=== PATIENT | male | born 1950 | race Caucasian/White ===

== ENCOUNTER → 2019-11-03 15:31 | Emergency (ER) | payer MEDICARE, SELFPAY ==
[2019-11-03 15:33] VITALS: BP 111/69; PULSE 91; RESP 16; TEMP 36.6; O2SAT 97
[2019-11-03] MEDS: predniSONE 20 MG TABLET 60 MG PO (16:43)
[2019-11-03] MEDS: FAMOTIDINE 20 MG TABLET PO (16:43)
--- NOTE | 2019-11-03 16:43 | ED.GENADULT ---
HPI - General Adult General Chief complaint: Unspecified <Ramy Estrada PA-C - Last Filed: 11/03/19 16:47> Stated complaint: bee sting issue <MERCEDES Joseph Last Filed: 11/03/19 16:47> Time Seen by Provider: 11/03/19 16:09 <Ramy Estrada PA-C - Last Filed: 11/03/19 16:47> Source: patient and family <MERCEDES Joseph Last Filed: 11/03/19 16:47> Mode of arrival: ambulatory <Ramy Estrada PA-C - Last Filed: 11/03/19 16:47> Limitations: no limitations <Ramy Estrada PA-C - Last Filed: 11/03/19 16:47> History of Present Illness HPI narrative: Patient is a 69-year-old male who presents with multiple stings to the lower extremities that occurred today while mowing the lawn patient was stung by yellow jackets took Benadryl multiple types with no improvement presents noting he began to feel weak but is feeling much better at this time patient denies recent illness or other complaints and presents per private vehicle in no distress <Ramy Estrada PA-C - Last Filed: 11/03/19 16:47> Related Data Allergies/adverse reactions: Allergies Allergy/AdvReac Type Severity Reaction Status Date / Time bee venom protein (honey bee) Allergy Swelling Verified 11/03/19 16:44 [bees] <Ramy Estrada PA-C - Last Filed: 11/03/19 16:47> Review of Systems Review of Systems: All systems reviewed & are unremarkable except as noted in HPI and below <Ramy Estrada PA-C - Last Filed: 11/03/19 16:47> PMFSH Social History Social History: Social History (Updated 11/03/19 @ 16:44 by Ramy Estrada PA-C) Smoking status: Current every day smoker Gender identity (if verbalized by the patient): Male <Ramy Estrada PA-C - Last Filed: 11/03/19 16:47> Exam Narrative: Exam Narrative: GENERAL: Well-appearing, well-nourished, and in no acute distress. HEAD: Normocephalic, atraumatic. EYES: PERRLA and EOMI. ENT: Nares clear, no rhinorrhea or epistaxis. Mucous membranes moist. No angioedema in the oropharynx NECK: Supple. No adenopathy or masses. No stridor CHEST: Clear to auscultation. No respiratory distress. No wheezes rales or rhonchi HEART: Regular rate and rhythm. No murmur heard. Normal peripheral pulses. EXTREMITIES: Normal range of motion. No edema. SKIN: Warm, dry, patient with scattered bee stings to the lower extremities NEURO: No focal deficits. Alert and oriented x3. PSYCH: Normal mood and affect. <Ramy Estrada PA-C - Last Filed: 11/03/19 16:47> Course Course Emergency Course: Patient in the room in no distress aware of case findings treatment plan and diagnosis agreeing to follow-up as directed or to return if symptoms worsen or concerns <MERCEDES Joseph Last Filed: 11/03/19 16:47> Vital Signs Vital signs: Vital Signs Temperature 97.9 F 11/03/19 15:33 Pulse Rate 91 11/03/19 15:33 Respiratory Rate 16 11/03/19 15:33 Blood Pressure 111/69 11/03/19 15:33 Pulse Oximetry 97 11/03/19 15:33 Temperature 97.9 F 11/03/19 15:33 Pulse Rate 91 11/03/19 15:33 Respiratory Rate 16 11/03/19 15:33 Blood Pressure 111/69 11/03/19 15:33 Pulse Oximetry 97 11/03/19 15:33 <MERCEDES Joseph Last Filed: 11/03/19 16:47> Vital Signs Temperature 97.9 F 11/03/19 15:33 Pulse Rate 91 11/03/19 15:33 Respiratory Rate 16 11/03/19 15:33 Blood Pressure 111/69 11/03/19 15:33 Pulse Oximetry 97 11/03/19 15:33 Temperature 97.9 F 11/03/19 15:33 Pulse Rate 91 11/03/19 15:33 Respiratory Rate 16 11/03/19 15:33 Blood Pressure 111/69 11/03/19 15:33 Pulse Oximetry 97 11/03/19 15:33 <Sobia Trent MD - Last Filed: 11/03/19 19:02> Medical Decision Making MDM Narrative Medical decision making narrative: Patient with bee stings and allergic reaction no distress hemodynamically stable felt appropriate for discharge home given medications in the
== END | disposition home or self-care (01) ==
PROVIDERS: Emergency Provider General Practice
DX: T63.461A Toxic effect of venom of wasps, accidental (unintentional), initial encounter (principal)
CPT/HCPCS: 99283; A9270; J7512

== ENCOUNTER 2021-09-05 10:06 | Emergency (ER) | payer MEDICARE, SELFPAY ==
[2021-09-05 10:38] VITALS: BP 135/83; PULSE 84; RESP 18; TEMP 36.6; O2SAT 98
--- NOTE | 2021-09-05 11:10 | ED.GENADULT ---
HPI - General Adult General Chief complaint: Skin/Abscess/Foreign Body Stated complaint: Lt eye swollen History of Present Illness HPI narrative: Patient is a 71-year-old male who presents to the [facility] via pov for an evaluation of a skin problem of left face that began 5 days ago. [place] something hit him in the face causing a subtle. sting. He reports swelling, drainage from left eye, and tenderness. Related Data Allergies Allergy/AdvReac Type Severity Reaction Status Date / Time bee venom protein (honey bee) Allergy Swelling Verified 09/05/21 10:56 [bees] Review of Systems Review of Systems: Pertinent negatives fever, chills, sweats, malaise, poor p.o. intake, change in appetite, vision problems, headache, LOC, dizziness, streaking, drainage, numbness, tingling, loss of sensation, foreign body sensation, deformity, sob, chest pain, and heart palpitations/murmurs. [facility] Social History Social History Smoking status: Current every day smoker Gender identity (if verbalized by the patient): Male Exam Narrative: GENERAL: Well-appearing, well-nourished, and in no acute distress. HEAD: Normocephalic, atraumatic. EYES: PERRLA and EOMI. Periorbital cellulitis noted to left face. Watery drainage noted to left eye. Yellow crusts noted to left face. Scabbing that is 0.5 cm in size noted to left cheek. ENT: Nares clear, no rhinorrhea or epistaxis. Mucous membranes moist and pink. Uvula is midline without erythema and swelling. No evidence of obstruction, petechial rash, cobblestoning, lesions, ulcers, erythema, swelling, exudates, peritonsillar abscess, tenting, or drooling. Breath odor and voice normal. NECK: Supple. No Lymphadenopathy or nuchal rigidity appreciated. CHEST: Bilateral lung hicks are clear to auscultation. No respiratory distress. No evidence of cough or pleuritic cp upon examination. HEART: Regular rate and rhythm. No murmur, gallop, or rub heard. EXTREMITIES: Normal range of motion. No edema. SKIN: Warm, dry. No evidence of abscess, streaking, induration, abrasions/lacerations, petechiae, hematoma, contusion, drainage, or bleeding. NEURO: No focal deficits. Alert and oriented x3. SPECIAL OBSERVATIONS: Smiling. Laughing. No evidence of discomfort. Course Course Level of Care: Express Care Visit Vital Signs Vital signs: Vital Signs Temperature 97.9 F 09/05/21 10:38 Pulse Rate 84 09/05/21 10:38 Respiratory Rate 18 09/05/21 10:38 Blood Pressure 135/83 09/05/21 10:38 Pulse Oximetry 98 09/05/21 10:38 Oxygen Delivery Room Air 09/05/21 10:38 Temperature 97.9 F 09/05/21 10:38 Pulse Rate 84 09/05/21 10:38 Respiratory Rate 18 09/05/21 10:38 Blood Pressure 135/83 09/05/21 10:38 Pulse Oximetry 98 09/05/21 10:38 Oxygen Delivery Room Air 09/05/21 10:38 Reviewed. Medical Decision Making Differential Diagnosis Differential Diagnosis: Contact/allergic dermatitis, atopic dermatitis, psoriasis, cellulitis, tinea infection, parasite infection, shingles Vital Signs Vital Signs: Vital Signs Temperature 97.9 F 09/05/21 10:38 Pulse Rate 84 09/05/21 10:38 Respiratory Rate 18 09/05/21 10:38 Blood Pressure 135/83 09/05/21 10:38 Pulse Oximetry 98 09/05/21 10:38 Oxygen Delivery Room Air 09/05/21 10:38 Temperature 97.9 F 09/05/21 10:38 Pulse Rate 84 09/05/21 10:38 Respiratory Rate 18 09/05/21 10:38 Blood Pressure 135/83 09/05/21 10:38 Pulse Oximetry 98 09/05/21 10:38 Oxygen Delivery Room Air 09/05/21 10:38 Critical Care Time Critical Care Time Critical Care Time: No Discharge Plan Discharge Clinical Impression: Periorbital cellulitis of left eye Patient Disposition: Home, Self-Care Condition: Stable Instructions: Antibiotic Form, Periorbital Cellulitis in Adults (ED) Additional Instructions: See discharge instr
[2021-09-05] MEDS: methylPREDNISolone SOD SUCC 125 MG VIAL IM (11:28)
[2021-09-05] MEDS: cefTRIAXone 1 GM, LIDOCAINE HCL 1% LOCAL INJ 2.1 ML IM (11:28)
== END 2021-09-05 11:50 | disposition home or self-care (01) ==
PROVIDERS: Emergency Provider Nurse Practitioner Family
DX: L03.213 Periorbital cellulitis (principal); F17.200 Nicotine dependence, unspecified, uncomplicated
CPT/HCPCS: 96372; 99204; G0463; J0696; J2930

== ENCOUNTER 2021-09-07 10:00 | Emergency (ER) | payer MEDICARE, SELFPAY ==
[2021-09-07 10:11] VITALS: BP 144/77; PULSE 81; RESP 18; TEMP 36.7; O2SAT 99
--- NOTE | 2021-09-07 14:50 | ED.GENADULT ---
HPI - General Adult General Chief complaint: Eye Problems Stated complaint: swollen lt eye Time Seen by Provider: 09/07/21 10:15 Source: patient Mode of arrival: ambulatory Limitations: no limitations History of Present Illness HPI narrative: 71-year-old male presents for checkup for his periorbital cellulitis. Has been taking Augmentin and steroid since September 05. Reports that last night erythema and swelling was worse and then today it is where it has been at. States not really improving. He has drainage from left eye. Is not on antibiotic eyedrop. Denies vision change no eye pain. Denies fever chills. States I just wanted someone to look at it and see how its doing . Patient does not have a PCP for follow-up. All systems reviewed and negative except as noted above. Related Data Allergies Allergy/AdvReac Type Severity Reaction Status Date / Time bee venom protein (honey bee) Allergy Swelling Verified 09/07/21 10:11 [bees] Review of Systems Review of Systems: CONSTITUTIONAL: Denies fever, chills, or sweats. EYES: Denies visual changes, redness, or discharge. ENT: Denies rhinorrhea, congestion, sore throat, or otalgia. CARDIOVASCULAR: Denies chest pain, palpitations, or edema. RESPIRATORY: Denies cough or dyspnea. GASTROINTESTINAL: Denies abdominal pain, nausea, vomiting, or diarrhea. GENITOURINARY: Denies dysuria or hematuria. SKIN: Denies rash or itching. Reports redness, swelling, pain to left side face. MUSCULOSKELETAL: Denies back pain, joint pain, or myalgia. NEUROLOGIC: Denies headache, numbness, or weakness. PSYCHIATRIC: Denies anxiety or depression. All other systems reviewed are negative, except as documented in HPI. PMFSH Social History Social History Smoking status: Current every day smoker Gender identity (if verbalized by the patient): Male Comments At time of signature, agree with nursing past medical, surgical, social and family history. There is no relevant family history pertinent to the presenting complaint. Exam Narrative: GENERAL: This is a well-nourished, well-developed patient, in no apparent distress. HEAD: normocephalic, atraumatic. EYES: PERRL. Sclera clear/white. Vision is grossly intact. To conjunctive left eye. Purulent yellow drainage from left eye. EARS: External ears normal NOSE: External nose normal NECK: Neck supple, non-tender without lymphadenopathy, masses or thyromegaly. CARDIOVASCULAR: Regular rate and rhythm without murmurs, gallops, or rubs. RESPIRATORY: Clear to auscultation. Breath sounds equal bilaterally. No wheezes, rales, or rhonchi. SKIN: warm, Dry, good texture and turgor. There is erythema and swelling to left side of face. There is erythematous scabbing to left side forehead, left cheek, nose Upper and lower eyelids are erythematous and swollen. NEURO: awake, alert, and oriented to person, place and time. There were no obvious focal neurologic abnormalities. EXTREMITIES: Normal range of motion to all extremities. HENMT: Head images: 1. Facial cellulitis, erythema, swelling Course Course Level of Care: Express Care Visit Vital Signs Vital signs: Vital Signs Temperature 36.7 C 09/07/21 10:11 Pulse Rate 81 09/07/21 10:11 Respiratory Rate 18 09/07/21 10:11 Blood Pressure 144/77 H 09/07/21 10:11 Pulse Oximetry 99 09/07/21 10:11 Oxygen Delivery Room Air 09/07/21 10:11 Temperature 36.7 C 09/07/21 10:11 Pulse Rate 81 09/07/21 10:11 Respiratory Rate 18 09/07/21 10:11 Blood Pressure 144/77 H 09/07/21 10:11 Pulse Oximetry 99 09/07/21 10:11 Oxygen Delivery Room Air 09/07/21 10:11 Reviewed Medical Decision Making MDM Narrative Medical decision making narrative: Recommend that patient go to ER for IV antibiotics but he did not feel that this was necessary. He does not have a PCP for follow-up. He is concerned that he may need another antibi
== END 2021-09-07 10:38 | disposition left against medical advice (07) ==
PROVIDERS: Emergency Provider Nurse Practitioner Family
DX: L03.213 Periorbital cellulitis (principal)
CPT/HCPCS: 99213; G0463

== ENCOUNTER 2023-12-27 09:21 | Outpatient (CLI) | payer MEDICARE, SELFPAY ==
[2023-12-27 13:52] LABS: Basophils Absolute Auto 0.1 K/mm3 (0.0-0.1); Basophils Percent Auto 1.2 % (0.2-1.2); Eosinophils Absolute Auto 0.1 K/mm3 (0-0.3); Eosinophils Percent Auto 1.3 % (0-4.4); Hematocrit 46.8 % (42.0-52.0); Hemoglobin 15.4 g/dL (14.0-18.0); Immature Granulocyte Absolute 0.05 K/mm3 (0.00-0.031); Immature Granulocyte Percent A 0.5 % (0-0.5); Lymphocytes Absolute Auto 1.91 K/mm3 (0.9-3.2); Lymphocytes Percent Auto 20.2 % (18.3-44.2); Mean Corpuscular HGB Conc 32.9 g/dl (32-36); Mean Corpuscular Hemoglobin 33.8 pg (26-34); Mean Corpuscular Volume 102.6 fl (80-100); Mean Platelet Volume 9.8 fl (7.4-10.4); Monocytes Percent Auto 10.9 % (2.6-8.5); Neutrophils Absolute Auto 6.3 K/mm3 (1.3-6.7); Neutrophils Percent Auto 65.9 % (45.5-73.1); Platelet Count Result 432 k/mm3 (150-375); Red Blood Count 4.56 M/mm3 (4.6-6.20); Red Cell Distribution Width 15.5 % (11.5-14.5); White Blood Count 9.5 K/mm3 (4.5-10.0)
[2023-12-27 14:25] LABS: Alanine Aminotransferase 19 U/L (6-50); Albumin Level 4.5 g/dL (3.5-5.1); Alkaline Phosphatase 46 U/L (38-126); Anion Gap 10 mmol/L (4-12); Aspartate Amino Transferase 84 U/L (17-59); Bilirubin,Total 0.6 mg/dL (0.2-1.3); Blood Urea Nitrogen 17 mg/dL (9-20); Calcium 8.9 mg/dL (8.4-10.2); Carbon Dioxide 26 mmol/L (22-30); Chloride 99 mmol/L (98-107); Cholesterol 188 mg/dL (0-200); Estimated Glomerular Filt Rate > 60; Glucose 81 mg/dL (65-110); HDL Direct 104 mg/dL; Potassium 4.2 mmol/L (3.4-5.0); Sodium 135 mmol/L (137-145); Triglycerides 66 mg/dL (<150)
[2023-12-27 14:37] LABS: LDL Cholesterol Direct 65 mg/dL
[2023-12-27 14:51] LABS: Prostate Specific Antigen 8.9 ng/mL (< OR = 4.0)
== END 2023-12-27 09:22 | disposition home or self-care (01) ==
LOC: ANHGOSHLAB 09:22
PROVIDERS: PCP Nurse Practitioner Family; Visit Provider Nurse Practitioner Family
DX: Z12.5 Encounter for screening for malignant neoplasm of prostate (principal); Z13.220 Encounter for screening for lipoid disorders; Z79.899 Other long term (current) drug therapy
CPT/HCPCS: 36415; 80053; 80061; 84153; 84443; 85025; G0103

== ENCOUNTER 2025-01-01 09:06 | Outpatient (CLI) | payer MEDICARE, SELFPAY ==
[2025-01-01 11:05] LABS: Hematocrit 44.6 % (42.0-52.0); Hemoglobin 15.4 g/dL (14.0-18.0); Immature Granulocyte Percent A 0.5 % (0-0.5); Lymphocytes Absolute Auto 1.58 K/mm3 (0.9-3.2); Mean Corpuscular HGB Conc 34.5 g/dl (32-36); Mean Corpuscular Hemoglobin 34.3 pg (26-34); Mean Corpuscular Volume 99.3 fl (80-100); Nucleated Red Blood Cells Absolute Auto 0.000 K/mm3 (0.0-0.012); Nucleated Red Blood Cells Perc 0.0 % (0.0-0.2); Platelet Count Result 398 k/mm3 (150-375); Red Blood Count 4.49 M/mm3 (4.6-6.20); White Blood Count 8.5 K/mm3 (4.5-10.0)
[2025-01-01 11:13] LABS: Alanine Aminotransferase 28 U/L (6-50); Albumin Level 4.0 g/dL (3.5-5.1); Alkaline Phosphatase 48 U/L (38-126); Anion Gap 5 mmol/L (4-12); Aspartate Amino Transferase 39 U/L (17-59); Bilirubin,Total 0.6 mg/dL (0.2-1.3); Blood Urea Nitrogen 10 mg/dL (9-20); Calcium 8.9 mg/dL (8.4-10.2); Carbon Dioxide 26 mmol/L (22-30); Chloride 101 mmol/L (98-107); Estimated Glomerular Filt Rate > 60; Glucose 107 mg/dL (65-110); Potassium 4.4 mmol/L (3.4-5.0); Sodium 132 mmol/L (137-145); Total Protein 6.8 g/dL (6.3-8.2)
[2025-01-01 13:35] LABS: Hemoglobin A1C 5.3 % (<5.7)
== END 2025-01-01 09:07 | disposition home or self-care (01) ==
PROVIDERS: PCP Nurse Practitioner Family; Visit Provider Nurse Practitioner Family
DX: R74.01 Elevation of levels of liver transaminase levels (principal); E55.9 Vitamin D deficiency, unspecified; R73.01 Impaired fasting glucose; Z87.891 Personal history of nicotine dependence; Z13.6 Encounter for screening for cardiovascular disorders
CPT/HCPCS: 36415; 80053; 82306; 83036; 85025

== ENCOUNTER 2025-01-11 09:22 | Outpatient (CLI) | payer MEDICARE, SELFPAY ==
--- NOTE | ~2025-01-11 | US_ITS ---
EXAMINATION: US aorta [facility] DATE: 01/11/2025 10:42 INDICATION: Abdominal aortic aneurysm screening. TECHNIQUE: Grayscale, color Doppler, and pulsed Doppler images of the aorta and common iliac arteries were obtained. COMPARISON: None. FINDINGS: The aorta is normal in size and demonstrates atherosclerosis. The right common iliac artery is normal in size. The left common iliac artery is normal in size. IMPRESSION: 1. No abdominal aortic aneurysm. Reviewed, dictated and finalized at location E.
== END 2025-01-11 09:23 | disposition home or self-care (01) ==
PROVIDERS: PCP Nurse Practitioner Family; Visit Provider Nurse Practitioner Family
DX: Z13.6 Encounter for screening for cardiovascular disorders (principal); Z87.891 Personal history of nicotine dependence
CPT/HCPCS: 76706